=== PATIENT | male | born 1955 | race African-American/Black ===

== ENCOUNTER 2017-12-27 07:00 | Emergency (ER) | payer OTHER ==
[~2017-12-27] VITALS: Ht 188 cm; Wt 182.0 kg
[2017-12-27 08:30] VITALS: BP 160/77
== END 2017-12-27 09:13 | disposition home or self-care (01) ==
LOC: TRA 07:00
DX: S80.02XA Contusion of left knee, initial encounter (principal); V79.50XA Passenger on bus injured in collision with unspecified motor vehicles in traffic accident, initial encounter; Y92.410 Unspecified street and highway as the place of occurrence of the external cause; G89.29 Other chronic pain; M17.0 Bilateral primary osteoarthritis of knee; F32.9 Major depressive disorder, single episode, unspecified
CPT/HCPCS: 73564; 99281; 99285